=== PATIENT | female | born 1980 | race Caucasian/White ===

== ENCOUNTER 2020-03-21 05:38 | Inpatient (IN) | payer BC ==
[2020-03-14 15:23] LABS: BASOPHILS # (AUTO) 0.1 X10'3 (0-0.2); BASOPHILS % (AUTO) 1.1 % (0-1); EOSINOPHILS # (AUTO) 0.1 X10'3 (0-0.9); EOSINOPHILS % (AUTO) 2.6 % (0-6); LYMPHOCYTES # (AUTO) 1.1 X10'3 (1.1-4.8); MEAN CORPUSCULAR HEMOGLOBIN 31.7 PG (27.0-31.0); MEAN CORPUSCULAR VOLUME 96.1 FL (78-98); MEAN PLATELET VOLUME 9.7 FL (7.4-10.4); MONOCYTES # (AUTO) 0.8 X10'3 (0-0.9); MONOCYTES % (AUTO) 14.4 % (2-12); NEUTROPHILS # (AUTO) 3.5 X10'3 (1.8-7.7); NEUTROPHILS % (AUTO) 61.9 % (42-75); PRE OP HEMOGLOBIN 12.9 g/dL (12.0-16.0); PRE OP PLATELET COUNT 191 X10'3 (140-440); RED BLOOD COUNT 4.06 X10'6 (4.20-5.60); RED CELL DISTRIBUTION WIDTH 13.4 % (11.5-14.5)
[2020-03-14 15:39] LABS: ALBUMIN 3.8 G/DL (3.4-5.0); ALBUMIN/GLOBULIN RATIO 0.8 (1.1-1.5); ALKALINE PHOSPHATASE 61 IU/L (46-116); BLOOD UREA NITROGEN 17 MG/DL (7-18); BUN/CREATININE RATIO 18.7 (6.6-38.0); CALCIUM 8.8 MG/DL (8.5-10.1); CHLORIDE 105 MMOL/L (99-107); CREATININE 0.91 MG/DL (0.40-0.90); PRE OP ALT 24 U/L (30-65); PRE OP ANION GAP 9 (8-16); PRE OP AST 29 U/L (10-37); PRE OP BILIRUB, TOTAL 0.5 MG/DL (0.0-1.0); PRE OP GLUCOSE 88 MG/DL (70-104); PRE OP POTASSIUM 3.5 MMOL/L (3.4-5.1); PRE OP SODIUM 140 MMOL/L (135-145); TOTAL CARBON DIOXIDE 26.1 MMOL/L (24-32); TOTAL PROTEIN 8.3 G/DL (6.4-8.2); eGFR 68 ML/MIN
[2020-03-14 15:40] LABS: HCG SERUM QL NEGATIVE
[2020-03-14 15:57] LABS: CLARITY,URINE CLEAR (Clear); COLOR,URINE YELLOW (Yellow); GLUCOSE, URINE NEGATIVE (Neg); KETONES,URINE NEGATIVE (Neg); LEUKOCYTE ESTERASE ,URINE NEGATIVE (Neg); NITRITES, URINE NEGATIVE (Neg); OCCULT BLOOD,URINE NEGATIVE (Neg); PH,URINE 6.5 (4.8-8.0); PROTEIN,URINE NEGATIVE (Neg); UROBILINOGEN,URINE 0.2 E.U/dL (0.2-1.0)
[2020-03-14 15:59] LABS: UA COLLECTION TYPE NON-SPECIFIED
[2020-03-21] VITALS (26 sets, daily range): BP systolic 102–150; BP diastolic 60–89
[~2020-03-21] VITALS: Ht 162.6 cm; Wt 85.3 kg
[~2020-03-21 05:38] MED LIST: FEXO180T94 PO; MELO-100 PO; ceFOXitin sod/dextrose 2g/50ml 50 ML IV ONE; famotidine 20mg tablet PO ONE
[2020-03-21] MEDS: ringers solution, lacted 1,000 ML IV SCH ×2 (06:14→14:41)
[2020-03-21] MEDS ORDERED: BUPIVAcaine/PF 2.5 mg/ml (0.25%) 30ml vial ONE ×2 (06:43→07:23)
[2020-03-21] MEDS ORDERED: clindamycin phosphate 40gm vag cream ONE (06:43)
[2020-03-21] MEDS ORDERED: neomy sulf/polymyxin B sulf. GU irrigation 1ml amp IR ONE (06:43)
[2020-03-21] MEDS ORDERED: vasoPRESSIN 20 units/ml inj. ONE (06:44)
[2020-03-21] MEDS ORDERED: ringers solution, lacted 1,000 ML IV SCH (07:08)
[2020-03-21] MEDS ORDERED: hydrALAZINE 20mg/ml inj. IV PRN (07:10)
[2020-03-21] MEDS ORDERED: acetaminophen 1,000mg/100ml IV 100 ML IV PRN (07:10)
[2020-03-21] MEDS ORDERED: proCHLORperazine 10 MG/2 ml inj IV PRN (07:10)
[2020-03-21] MEDS ORDERED: labetalol 20mg/4ml (5mg/ml) syringe IV PRN (07:10)
[2020-03-21] MEDS ORDERED: morphine 2 MG/ML inj. syringe IV PRN (07:10)
[2020-03-21] MEDS ORDERED: meperidine/PF 25mg/ml syringe IV PRN ×2 (07:10)
[2020-03-21] MEDS ORDERED: ondansetron/PF 4mg/2ml inj IV PRN ×2 (07:10→11:15)
[2020-03-21] MEDS ORDERED: midazolam 2 mg/2 ml injection ONE (07:14)
[2020-03-21] MEDS ORDERED: fentaNYL /PF 50mcg/ml 5ml ampule ONE (07:18)
[2020-03-21] MEDS ORDERED: BUPIVACAINE liposomal/PF 13.3 MG/ML vial IM ONE ×2 (07:23→10:16)
[2020-03-21] MEDS ORDERED: sevoflurane 250ml liquid IH ONE (07:30)
[2020-03-21] MEDS ORDERED: neostigmine methylsulfate 1 MG/ML 10ml vial ONE (07:30)
[2020-03-21] MEDS ORDERED: glycopyrrolate 0.2mg/ml inj ONE (07:30)
[2020-03-21] MEDS ORDERED: propofol inj 20 ML IV ONE ×2 (07:33→10:22)
[2020-03-21] MEDS ORDERED: rocuronium 10mg/ml inj IV ONE (07:33)
[2020-03-21] MEDS ORDERED: LIDOcaine 2% (20mg/ml) 5ml vial ONE (07:33)
[2020-03-21] MEDS ORDERED: dexamethasone sod phosphate 4mg/ml inj. ONE (10:23)
[2020-03-21] MEDS ORDERED: ondansetron/PF 4mg/2ml inj ONE (10:23)
--- NOTE | 2020-03-21 11:00 | NUR ---
Received from OR via surgical, accompanied by Anesthesiologist Carlos and report given by Anesthesiolgist. VS stable, 10L O2 present with 99% sats. Pain 4/10, shivering, will administer demerol. 20G right AC with LR at 100cc/hr. Grant cath present yellow urine draining. 5 lap sites to abdomen open to air.
[2020-03-21] MEDS: meperidine/PF 25mg/ml syringe IV PRN ×3 (11:10→12:20)
[2020-03-21] MEDS ORDERED: Potassium Cl inj 20 MEQ in ringers solution, lacted 1,000 ML IV SCH (11:14)
[2020-03-21] MEDS: morphine 4 MG/ML inj SYRINge IV PRN ×2 (11:24→11:59)
[2020-03-21] MEDS ORDERED: ketorolac trometh. 30mg/ml inj. IV ONE (12:25)
--- NOTE | 2020-03-21 13:20 | NUR ---
Report called to receiving nurse. Transferred via surgical bed. Belongings sent with patient including glasses in the chart. Gonig to room 348A, patient aware of tx plan. Special Issues communicated to receiving nurse STACY Johnson. BLL call light within reach chart sent with patient. Pt's abdomen remains CDI.
[2020-03-21] MEDS: HYDROcodone/acetaminophen 5mg/325mg tablet PO PRN ×3 (14:50→23:15)
[2020-03-21] MEDS: Potassium Cl inj 20 MEQ in ringers solution, lacted 1,000 ML IV SCH ×2 (14:56→22:45)
[2020-03-21] MEDS: MELOXICAM PO SCH (14:57)
--- NOTE | 2020-03-21 18:37 | NUR ---
Problems reprioritized. Patient report given, questions answered & plan of care reviewed with Gisselle RN and Bonnie RN. I changed patients diet to Full liquid per MD orders and ordered a full liquid tray substitute popsicle for ice cream and 3 sprites. Noc shift RN will bring patient [place] for pain.
--- NOTE | 2020-03-21 18:55 | NUR ---
Patient in room [facility]. I have received report from Elizabeth KUMAR and had the opportunity to ask questions and assume patient care.
[2020-03-21] MEDS ORDERED: loratadine 10mg tablet PO SCH (21:00)
[2020-03-22] VITALS: BP 120/72
[2020-03-22] MEDS: Potassium Cl inj 20 MEQ in ringers solution, lacted 1,000 ML IV SCH ×2 (03:32→07:22)
[2020-03-22 04:00] VITALS: BP 100/57
[2020-03-22] MEDS: HYDROcodone/acetaminophen 5mg/325mg tablet PO PRN ×2 (06:07→10:16)
--- NOTE | 2020-03-22 06:44 | NUR ---
Problems reprioritized. Patient report given, questions answered & plan of care reviewed with Lissette KUMAR.
[2020-03-22 08:00] VITALS: BP 98/67
[2020-03-22] MEDS: MELOXICAM PO SCH (08:00)
--- NOTE | 2020-03-22 10:17 | NUR ---
Dr Landon in to see pt. Verbalized its ok for pt to be D/C home. Pt voided 0800 with non-residual urine per bladder scan. pt tolerating regular diet well. PRN pain med given for mod pain.
--- NOTE | 2020-03-22 12:03 | NUR ---
Pt D/C'd home in stable conditions. medication and discharge instructions given to pt. IV removed with cannula intact. Pt was escorted to main lobby on w/c. Left the hospital via private vehicle accompanied by family member.
== END 2020-03-22 11:15 | disposition home or self-care (01) | DRG 355 ==
LOC: PAS 05:38 → SUR 3N 11:14
PROVIDERS: ADMIT Surgery; ATTEND Surgery
PROC: 0UT7FZZ Resection of Bilateral Fallopian Tubes, Via Natural or Artificial Opening With Percutaneous Endoscopic Assistance (ICD-10-PCS; 2020-03-21)
PROC: 0WUF4JZ Supplement Abdominal Wall with Synthetic Substitute, Percutaneous Endoscopic Approach (ICD-10-PCS; principal; 2020-03-21 07:30)
PROC: 0UT9FZZ Resection of Uterus, Via Natural or Artificial Opening With Percutaneous Endoscopic Assistance (ICD-10-PCS; 2020-03-21 07:30)
DX: K43.9 Ventral hernia without obstruction or gangrene (principal); N92.1 Excessive and frequent menstruation with irregular cycle; N94.6 Dysmenorrhea, unspecified; F17.210 Nicotine dependence, cigarettes, uncomplicated; J30.1 Allergic rhinitis due to pollen; N85.2 Hypertrophy of uterus
CPT/HCPCS: Z7506; Z7508; 36415; 71046; 80053; 81003; 82948; 84703; 85025; 85610; 85730; 86885; 86900; 86901; 93005; A4215; A4314; A4338; A4357; A4618; A7000; C1713; C1758; C1781; C9290; G0378; J0131; J0694; J1100; J1885; J2001; J2175; J2250; J2270; J2405; J2704; J2710; J3010; J3480; J3490; J7120